=== PATIENT | female | born 1980 | race Two or more races ===

== ENCOUNTER 2018-12-04 19:55 | Emergency (ER) | payer BC, OTHER ==
[~2018-12-04] VITALS: Ht 176.5 cm; Wt 130.3 kg
[2018-12-04 20:14] VITALS: BP 126/81
--- NOTE | 2018-12-04 20:36 | NUR ---
Pt back to room from imaging.
[2018-12-04] MEDS ORDERED: DEXAMETHASONE 4 MG TABLET ONE (21:07)
[2018-12-04] MEDS ORDERED: NAPR220T77 PO (21:10)
[2018-12-04] MEDS ORDERED: DEXAMETHASONE 4 MG TABLET PO ONE (21:30)
== END 2018-12-04 21:21 | disposition home or self-care (01) ==
LOC: ED 21:14
DX: J06.9 Acute upper respiratory infection, unspecified (principal)
CPT/HCPCS: 71046; 99283